=== PATIENT | female | born 1960 | race African-American/Black ===

== ENCOUNTER 2018-06-18 02:25 | Emergency (ER) | payer MEDICAID ==
[2018-06-18] MEDS ORDERED: MEPERIDINE HCL 50 MG/ML AMP ONE (02:56)
[2018-06-18] MEDS ORDERED: ONDANSETRON 4 MG (ODT) TAB ONE (02:57)
[2018-06-18] MEDS ORDERED: DIPHENHYDRAMINE 50 MG/ML VIAL ONE (04:34)
--- NOTE | 2018-06-18 04:49 | ER ---
Nurse's Notes [facility] Name: Erica Lopez Age: 57 yrs Sex: Female : 1960 Arrival Date: 06/18/2018 Time: : Bed 16 Private MD: Diagnosis: Acute headache Presentation: 06/18 02:28 Presenting complaint: EMS states: SHE WAS OUT AT THE BAR WITH FRIENDS AND HER HEAD bp STARTED HURTING REAL BAD ON THE LEFT SIDE. Transition of care: patient was not received from another setting of care. Onset of symptoms is unknown. Risk Assessment: Do you want to hurt yourself or someone else? Patient reports no desire to harm self or others. Initial Sepsis Screen: Does the patient meet any 2 criteria? No. Patient's initial sepsis screen is negative. Does the patient have a suspected source of infection? No. Patient's initial sepsis screen is negative. Care prior to arrival: Glucose check: 287. 02:28 Method Of Arrival: EMS: [facility] bp 02:28 Acuity: AARON 4 bp Triage Assessment: 02:30 Headache History: The patient has had previous headaches and this one is similar to bp previous episodes. General: Appears in no apparent distress. comfortable, Behavior is calm, cooperative, appropriate for age. Pain: Complains of pain in head Pain currently is 8 out of 10 on a pain scale. Pain began 2 hours ago. Also complains of photophobia. EENT: No deficits noted. Neuro: Level of Consciousness is awake, alert, obeys commands, Oriented to person, place, time, situation, Appropriate for age. Cardiovascular: No deficits noted. Respiratory: GI: No signs and/or symptoms were reported involving the gastrointestinal system. : No signs and/or symptoms were reported regarding the genitourinary system. Musculoskeletal: Circulation, motion, and sensation intact. Range of motion: intact in all extremities. Historical: - Allergies: 02:30 PENICILLINS; bp - Home Meds: 02:30 Atenolol Oral [Active]; lisinopril-hydrochlorothiazide 20-25 mg oral tab [Active]; bp - PMHx: 02:30 Hypertension; bp - Immunization history:: Adult Immunizations up to date. - Social history:: Smoking status: Patient/guardian denies using tobacco. - Ebola Screening: : Patient negative for fever greater than or equal to 101.5 degrees Fahrenheit, and additional compatible Ebola Virus Disease symptoms Patient denies exposure to infectious person Patient denies travel to an Ebola-affected area in the 21 days before illness onset No symptoms or risks identified at this time. Screenin:34 Abuse screen: Denies threats or abuse. Denies injuries from another. Nutritional bp screening: No deficits noted. Tuberculosis screening: No symptoms or risk factors identified. Fall Risk None identified. Assessment: 02:35 General: SEE TRIAGE NOTE. 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 bp 04:30 Reassessment: CT COMPLETED, AWAITING RESULTS. PT EXPRESSING RELIEF OF ACUTE S/S. bp 05:04 Reassessment: PT D/C HOME VIA W/C WITH FAMILY, DX WITH ACUTE HEADACHE. bp Vital Signs: 02:30 BP 149 / 100; Pulse 77; Resp 24; Temp 98.1; Pulse Ox 100% ; Weight 95.25 kg; Height 5 bp ft. 7 in. (170.18 cm); 03:30 BP 148 / 103; Pulse 76; Resp 16; Pulse Ox 97% ; bp 04:30 BP 129 / 77; Pulse 71; Resp 14; Pulse Ox 97% ; bp 02:30 Body Mass Index 32.89 (95.25 kg, 170.18 cm) bp ED Course: 02:27 Patient arrived in ED. bp 02:29 Triage completed. bp 02:33 Arm band placed on. bp 02:35 Patient has correct armband on for positive identification. Placed in gown. Bed in low bp position. Call light in reach. Side rails up X2. Adult w/ patient. 02:39 Rohan Ortiz MD is Attending Physician. pkl 02:50 Gera Nolan, BALDEV is Primary Nurse. bp 03:[address] via stretcher. kw1 03:10 CT completed. Patient tolerated procedure well. Patient moved back from CT. kw1 03:12 CT Head Brain wo Cont In Process Unspecified. EDMS 04:55 No provider procedures requiring assistance completed. Patient did not have IV access bp during this emergency room visit. Administered Medications: 03:00 Drug: Demerol 75 mg Route: IM; Site: left gluteus; bp 04:36 Follow up: Response: Pain is decreased bp 03:00 Drug: Zofran 4 mg Route: IM; Site: left gluteus; bp 04:36 Follow up: Response: No adverse reaction bp 04:36 Drug: Benadryl 25 mg Route: IM; Site: right gluteus; bp 04:55 Follow up: Response: Marked relief of symptoms bp Outcome: 04:48 Discharge ordered by . laurita 05:04 Discharged to home via wheelchair, with family. bp 05:04 Condition: stable 05:04 Discharge instructions given to patient, Instructed on discharge instructions, follow up and referral plans. medication usage, Demonstrated understanding of instructions, follow-up care, medications, Prescriptions given X 1. 05:05 Patient left the ED. bp Signatures: Dispatcher [employer] EDMS Rohan Ortiz MD MD pkl Peltier, Brian, RN RN Stephy Fox kw1
--- NOTE | 2018-06-18 04:49 | EDPHYS ---
Physician Documentation [facility] Name: Erica Lopez Age: 57 yrs Sex: Female : 1960 Arrival Date: 06/18/2018 Time: 02:27 Bed 16 Private MD: ED Physician Rohan Ortiz HPI: 06/18 02:46 This 57 yrs old Black Female presents to ER via EMS with complaints of Headache. pkl 02:46 The patient complains of pain to the forehead. The patient describes the headache as pkl constant. Onset: The symptoms/episode began/occurred just prior to arrival. Associated signs and symptoms: Pertinent positives: nausea. Historical: - Allergies: 02:30 PENICILLINS; bp - Home Meds: 02:30 Atenolol Oral [Active]; lisinopril-hydrochlorothiazide 20-25 mg oral tab [Active]; bp - PMHx: 02:30 Hypertension; bp - Immunization history:: Adult Immunizations up to date. - Social history:: Smoking status: Patient/guardian denies using tobacco. - Ebola Screening: : Patient negative for fever greater than or equal to 101.5 degrees Fahrenheit, and additional compatible Ebola Virus Disease symptoms Patient denies exposure to infectious person Patient denies travel to an Ebola-affected area in the 21 days before illness onset No symptoms or risks identified at this time. ROS: 02:46 Eyes: Negative for injury, pain, redness, and discharge, ENT: Negative for injury, pkl pain, and discharge, Neck: Negative for injury, pain, and swelling, Cardiovascular: Negative for chest pain, palpitations, and edema, Respiratory: Negative for shortness of breath, cough, wheezing, and pleuritic chest pain, Abdomen/GI: Negative for abdominal pain, nausea, vomiting, diarrhea, and constipation, Back: Negative for injury and pain, : Negative for injury, bleeding, discharge, and swelling, MS/Extremity: Negative for injury and deformity, Skin: Negative for injury, rash, and discoloration. 02:46 Neuro: Positive for headache. Exam: 02:46 Head/Face: Normocephalic, atraumatic. Eyes: Pupils equal round and reactive to light, pkl extra-ocular motions intact. Lids and lashes normal. Conjunctiva and sclera are non-icteric and not injected. Cornea within normal limits. Periorbital areas with no swelling, redness, or edema. ENT: Nares patent. No nasal discharge, no septal abnormalities noted. Tympanic membranes are normal and external auditory canals are clear. Oropharynx with no redness, swelling, or masses, exudates, or evidence of obstruction, uvula midline. Mucous membranes moist. Neck: Trachea midline, no thyromegaly or masses palpated, and no cervical lymphadenopathy. Supple, full range of motion without nuchal rigidity, or vertebral point tenderness. No Meningismus. Chest/axilla: Normal chest wall appearance and motion. Nontender with no deformity. No lesions are appreciated. Cardiovascular: Regular rate and rhythm with a normal S1 and S2. No gallops, murmurs, or rubs. Normal PMI, no JVD. No pulse deficits. Respiratory: Lungs have equal breath sounds bilaterally, clear to auscultation and percussion. No rales, rhonchi or wheezes noted. No increased work of breathing, no retractions or nasal flaring. Abdomen/GI: Soft, non-tender, with normal bowel sounds. No distension or tympany. No guarding or rebound. No evidence of tenderness throughout. Back: No spinal tenderness. No costovertebral tenderness. Full range of motion. Skin: Warm, dry with normal turgor. Normal color with no rashes, no lesions, and no evidence of cellulitis. MS/ Extremity: Pulses equal, no cyanosis. Neurovascular intact. Full, normal range of motion. Neuro: Awake and alert, GCS 15, oriented to person, place, time, and situation. Cranial nerves II-XII grossly intact. Motor strength 5/5 in all extremities. Sensory grossly intact. Cerebellar exam normal. Normal gait. Vital Signs: 02:30 BP 149 / 100; Pulse 77; Resp 24; Temp 98.1; Pulse Ox 100% ; Weight 95.25 kg; Height 5 bp ft. 7 in. (170.18 cm); 03:30 BP 148 / 103; Pulse 76; Resp 16; Pulse Ox 97% ; bp 04:30 BP 129 / 77; Pulse 71; Resp 14; Pulse Ox 97% ; bp 02:30 Body Mass Index 32.89 (95.25 kg, 170.18 cm) bp MDM: 02:39 Patient medically screened. pkl 04:47 Data reviewed: vital signs, nurses notes, radiologic studies, CT scan. pkl 06/18 02:46 Order name: CT Head Brain wo Cont pkl Administered Medications: 03:00 Drug: Demerol 75 mg Route: IM; Site: left gluteus; bp 04:36 Follow up: Response: Pain is decreased bp 03:00 Drug: Zofran 4 mg Route: IM; Site: left gluteus; bp 04:36 Follow up: Response: No adverse reaction bp 04:36 Drug: Benadryl 25 mg Route: IM; Site: right gluteus; bp 04:55 Follow up: Response: Marked relief of symptoms bp Disposition: 06/18/18 04:48 Discharged to Home. Impression: Acute headache. - Condition is Stable. - Prescriptions for Ultram 50 mg Oral Tablet - take 1 tablet by ORAL route every 8 hours As needed; 20 tablet. - Medication Reconciliation Form, Thank You Letter, Antibiotic Education, Prescription Opioid Use form. - Follow up: Private Physician; When: 2 - 3 days; Reason: Re-evaluation by your physician. - Problem is new. - Symptoms have improved. Signatures: Dispatcher [employer] EDMS Rohan Ortiz MD MD pkl Gera Nolan, RN RN bp Corrections: (The following items were deleted from the chart) 05:05 04:48 06/18/2018 04:48 Discharged to Home. Impression: Acute headache. Condition is bp Stable. Forms are Medication Reconciliation Form, Thank You Letter, Antibiotic Education, Prescription Opioid Use. Follow up: Private Physician; When: 2 - 3 days; Reason: Re-evaluation by your physician. Problem is new. Symptoms have improved. pkl
--- NOTE | 2018-06-18 08:14 | RAD REPORT ---
EXAM DESCRIPTION: CT - Head Brain Wo Cont - 06/18/2018 5:52 am CLINICAL HISTORY: HEADACHE COMPARISON: No comparisons TECHNIQUE: All CT scans are performed using dose optimization technique as appropriate and may inclu de automated exposure control or mA/KV adjustment according to patient size. FINDINGS: No intracranial hemorrhage, hydrocephalus or extra-axial fluid collection.No areas of brai n edema or evidence of midline shift. The paranasal sinuses and mastoids are clear. The calvarium is intact. IMPRESSION: No acute intracranial abnormality.
== END 2018-06-18 05:05 | disposition home or self-care (01) ==
LOC: ER 02:25
DX: R51 Headache (principal); I10 Essential (primary) hypertension; Z88.0 Allergy status to penicillin
CPT/HCPCS: 70450; 96372; 99284; J2175

== ENCOUNTER 2019-10-28 15:42 | Emergency (ER) | payer MEDICAID ==
--- OUTSIDE RECORDS SUMMARY | 2019-10-28 15:45 | XMS REPORT ---
:1960 [facility] [address] [place] [address] Dr. Walton. [address] [place] [address] Care Team Providers Name Role Phone Unavailable Unavailable Unavailable Payers Payer Name Policy Type Policy Number Effective Date Expiration Date Problems This patient has no known problems. Allergies, Adverse Reactions, Alerts Allergy Name Allergy Status Severity Reaction(s) Onset Inactive Treating Comments Type Date Date Clinician Penicillins DA Active U 2019-08 00:00:0 0 adhesive tape DA Active NV 2019-08 00:00:0 0 Penicillins DA Active U 2019-07 00:00:0 0 adhesive tape DA Active U 2019-07 00:00:0 0 Medications This patient has no known medications. Encounters Start End Encounter Admission Attending Care Care Encounter Date/Time Date/Time Type Type Clinicians Facility Department ID 2019-07-07 2019-07-07 [place] [address] 22:40:00 22:40:00 2019-04-17 2019-04-17 [place] [address] 23:10:00 23:10:00 Results Test Description Test Time Test Comments Text Results Atomic Results Result Comments GLYCOSYLATED HEMOGLOBIN (HA1C) 2019-09-01 14:42:00 Test Item Value Reference Range Comments GLYCOSYLATED HEMOGLOBIN (HA1C) 11.6 % 4.8-5.9 Any condition that shortens erythocyte (test code=GLYHGB) survival or decreasesmean erythrocyte age (e.g., recovery from acute blood loss,hemolytic anemai) will falsely lower HGBA1c resultsregardless of the method used. HGBA1c results frompatients with HbSS, HbCC and HbSc must be interpreted withcaution given the pathological processes, including anemia,increased red cell turnover, transfusion requirements, thatadversely impact HGBA1c as a marker of long-term glycemiccontrol. Alternative forms of testing such as fructosamineshould be considered for these patients.Any condition that shortens erythocyte survival or decreasesmean erythrocyte age (e.g., recovery from acute blood loss,hemolytic anemia) will falsely lower HGBA1c resultsregardless of the method used. HGBA1c results from patientswith HbSS, HbCC, and HbSc must be interpreted with cautiongiven the pathological processes, including anemia,increased red cell turnover, transfusion requirements, thatadversely impact HGBA1c as a marker of long-term glycemiccontrol. Alternative forms of testing such as fructosamineshould be considered for these patients.DONE AT: [facility] [address] [place] [address] GLYCOSYLATED HEMOGLOBIN (HA1C)2019-09-01 14:41:00 Test Item Value Reference Range Comments GLYCOSYLATED HEMOGLOBIN 11.6 % 4.8-5.9 Any condition that shortens (HA1C) (test code=GLYHGB) erythocyte survival or decreasesmean erythrocyte age (e.g., recovery from acute blood loss,hemolytic anemia) will falsely lower HGBA1c resultsregardless of the method used. HGBA1c results from patientswith HbSS, HbCC, and HbSc must be interpreted with cautiongiven the pathological processes, including anemia,increased red cell turnover, transfusion requirements, thatadversely impact HGBA1c as a marker of long-term glycemiccontrol. Alternative forms of testing such as fructosamineshould be considered for these patients. AB HIV 13:35:00 Test Item Value Reference Range Comments AB HIV 1 (test code=HIV1AB) NONREACTIVE NONREACTIVE DONE AT: [facility] [address] [place], [place] [address]Odvm by [employer] 4th Gen HIV Ag/Ab Combo Screen AB HIV 1 13:34:00 Test Item Value Reference Range Comments AB HIV 1 2 (test NONREACTIVE NONREACTIVE Done by Mto[facility] 4th code=MSX86BB) Gen HIV Ag/Ab Combo Screen CBC W/AUTO [id number] 13:09:00 Test Item Value Reference Range Comments WHITE BLOOD CELL (test code=WBC) 7.4 K/mm3 5.8-11.0 RED BLOOD CELL (test code=RBC) 5.73 M/mm3 4.2-5.4 HEMOGLOBIN (test code=HGB) 15.6 g/dL 12-16 HEMATOCRIT (test code=HCT) 47.7 % 37-47 MEAN CELL VOLUME (test code=MCV) 83 fL 80-98 MEAN CELL HGB (test code=MCH) 27.2 pg 27-34 MEAN CELL HGB CONCENTRATION (test code=MCHC) 32.7 g/dL 30.8-34.1 RED CELL DISTRIBUTION WIDTH (test code=RDW) 12.8 % 11-16 PLT (test code=PLT) 132 K/mm3 130-400 MEAN PLATELET VOLUME (test code=MPV) 14.4 fL 8.9-12.1 NEUTROPHIL % (test code=NT%) 52.1 % 45-70 LYMPHOCYTE % (test code=LY%) 34.3 % 20-40 MONOCYTE % (test code=MO%) 8.6 % 3-10 EOSINOPHIL % (test code=EO%) 4.0 % 1-5 BASOPHIL % (test code=BA%) 0.7 % 0.0-1.1 NEUTROPHIL # (test code=NT#) 3.88 K/mm3 2.00-7.50 LYMPHOCYTE # (test code=LY#) 2.55 K/mm3 1.50-4.00 MONOCYTE # (test code=MO#) 0.64 K/mm3 0.2-0.8 EOSINOPHIL # (test code=EO#) 0.30 K/mm3 0.04-0.4 BASOPHIL # (test code=BA#) 0.05 K/mm3 0.02-0.10 MANUAL DIFF REQUIRED (test code=MDIFF) NO MANUAL DIFF NUCLEATED RED BLOOD CELL (test code=NRBC) 0 % 0-0 URINALYSIS [id number] 12:57:00 Test Item Value Reference Range Comments UA COLOR (test code=COLU) YELLOW YELLOW UA APPEARANCE (test code=APPU) CLEAR CLEAR UA GLUCOSE DIPSTICK (test code=DGLUU) NEGATIVE NEGATIVE UA BILIRUBIN DIPSTICK (test code=BILU) NEGATIVE NEGATIVE UA KETONE DIPSTICK (test code=KETU) NEGATIVE mg/dL NEG UA SPECIFIC GRAVITY (test code=SGU) 1.015 1.003-1.035 UA BLOOD DIPSTICK (test code=MAURO) NEGATIVE NEGATIVE UA PH DIPSTICK (test code=GEORGE) 6.0 >6.5 UA PROTEIN DIPSTICK (test code=PROU) NEGATIVE mg/dL NEG UA UROBILINIOGEN DIPSTICK (test code=URO) 4.0 mg/dL NORM UA NITRITE DIPSTICK (test code=ELENA) NEGATIVE NEG UA LEUKOCYTE ESTERASE DIPSTICK (test NEGATIVE NEGATIVE code=LEUU) UA WBC (test code=WBCU) NONE SEEN /HPF 0-2 UA RBC (test code=RBCU) NONE SEEN /HPF 0-2 UA EPITHELIAL CELLS (test code=EPIU) 0-2 /HPF 0-2 UA BACTERIA (test code=BACU) RARE /HPF NONE PROTHROMBIN [id number] 12:38:00 Test Item Value Reference Range Comments PROTHROMBIN TIME PATIENT 12.7 secs 10.1-12.5 (test code=PTP) INTERNATIONAL NORMAL RATIO 1.12 <2.0 RECOMMENDED THERAPEUTIC RANGE (test code=INR) FOR ORAL ANTICOAGULANTTREATMENT: CONDITION INRProphylaxis of venous thrombosis in 2.0 - 3.0 high-risk medical or surgical patientsTreatment of venous thrombosis 2.0 - 3.0Prevention of embolism 2.0 - 3.0Prevention of recurrent embolism, or 3.0 - 4.5 patients with mechanical prosthetic intravascular valves IS PATIENT ON ANTICOAGULANTS ? [facility] been notified if Patient is on Heparin Drip? NOTHROMBOPLASTIN TIME [id number] 12:38:00 Test Item Value Reference Range Comments PTT ACTIVATED (test code=APTT) 32.9 secs 24.9-37.0 IS PATIENT ON ANTICOAGULANTS ? [facility] been notified if Patient is on Heparin Drip? NOCOMPREHENSIVE METABOLIC [id number] 12:21:00 Test Item Value Reference Range Comments SODIUM (test code=NA) 138 mmol/L 136-145 POTASSIUM (test code=K) 4.1 mmol/L 3.5-5.1 CHLORIDE (test code=CL) 101.0 mmol/L 98-107 CARBON DIOXIDE (test code=CO2) 29.4 mmol/L 21-32 GLUCOSE (test code=GLU) 237 mg/dL 70-110 BLOOD UREA NITROGEN (test 13 mg/dL 7-18 code=BUN) GLOMERULAR FILTRATION RATE 91.6 >60 Unit of measure: (test code=GFR) mL/min/1.73 [id number] Range:Healthy Adults >90 mL/min/1.73 m2 For Chronic Kidney Disease: Stage II Mild Decrease in GFR 60-90 Stage III Moderate Decrease in GFR 30-59 Stage IV Severe Decrease in GFR 15-29 Stage V Kidney Failure <15 CREATININE (test code=CREAT) 0.78 mg/dL 0.55-1.30 TOTAL PROTEIN (test code=PROT) 7.1 g/dL 6.4-8.2 ALBUMIN (test code=ALB) 3.2 g/dL 3.4-5.0 GLOBULIN (test code=GLOB) 3.9 g/dL 2.2-4.2 ALBUMIN/GLOBULIN RATIO (test 0.8 0.7-2.0 code=A/G) CALCIUM (test code=CA) 9.4 mg/dL 8.2-10.1 BILIRUBIN TOTAL (test 0.86 mg/dL 0.2-1.00 code=BILT) SGOT/AST (test code=AST) 69.0 U/L 15-37 SGPT/ALT (test code=ALT) 70.0 U/L 12-78 Please note new normal range. ALKALINE PHOSPHATASE TOTAL 151 U/L 46-116 (test code=ALKP) [id number] 01:13:00 Test Item Value Reference Range Comments GLUBED (test code=GLUBED) 222 MG/DL 70-105 COMPREHENSIVE METABOLIC [id number] 23:12:00 Test Item Value Reference Range Comments SODIUM (test code=NA) 135 mmol/L 135-145 POTASSIUM (test code=K) 3.9 mmol/L 3.6-5.0 CHLORIDE (test code=CL) 102 mmol/L 101-111 CARBON DIOXIDE (test 27 mmol/L 21-31 code=CO2) GLUCOSE (test code=GLU) 459 mg/dl 70-100 BLOOD UREA NITROGEN (test 14 mg/dl 6-20 code=BUN) GLOMERULAR FILTRATION >=60 max estimate >60 The estimated glomerular RATE (test code=GFR) filtration rate is computed usingpatient race, age (>18), sex, and serum creatinine. If anyof the needed data elements are missing the Laboratory cannot compute an estimation of the glomerular filtration rate. CREATININE (test 0.96 mg/dL 0.44-1.03 code=CREAT) TOTAL PROTEIN (test 7.2 g/dL 6.7-8.2 code=PROT) ALBUMIN (test code=ALB) 3.1 g/dL 3.2-5.5 CALCIUM (test code=CA) 8.9 mg/dL 8.5-10.5 BILIRUBIN TOTAL (test 0.90 mg/dL 0.2-1.3 code=BILT) SGOT/AST (test code=AST) 60 U/L 10-42 SGPT/ALT (test code=ALT) 62 U/L 10-60 ALKALINE PHOSPHATASE 118 U/L 42-121 (test code=ALKP) BETA [id number] 23:12:00 Test Item Value Reference Range Comments BETA HYDROBUTYRATE (test code=BETHYD) 0.05 mmol/L 0.02-0.27 CBC W/AUTO [id number] 23:08:00 Test Item Value Reference Range Comments WHITE BLOOD CELL (test code=WBC) 7.3 x10 3/uL 3.2-11.5 RED BLOOD CELL (test code=RBC) 5.59 x10(6)/m 3.70-5.10 HEMOGLOBIN (test code=HGB) 15.7 g/dL 12.0-15.0 HEMATOCRIT (test code=HCT) 47.6 % 35.7-44.8 MEAN CELL VOLUME (test code=MCV) 85 fL 80-100 MEAN CELL HGB (test code=MCH) 28.1 pg 26.2-33.8 MEAN CELL HGB CONCENTRATION (test code=MCHC) 33.0 g/dL 30.0-34.0 RED CELL DISTRIBUTION WIDTH (test code=RDW) 13.2 % 11.3-14.5 PLATELET COUNT (test code=PLT) 100 x10 3/uL 130-408 MEAN PLATELET VOLUME (test code=MPV) 13.4 fl 6.4-10.5 NEUTROPHIL % (test code=NT%) 56.7 % 40.0-70.0 LYMPHOCYTE % (test code=LY%) 32.1 % 20-40 MONOCYTE % (test code=MO%) 7.5 % 1-10 EOSINOPHIL % (test code=EO%) 3.1 % 1.0-5.0 BASOPHIL % (test code=BA%) 0.6 % 0.0-1.0 NEUTROPHIL # (test code=NT#) 4.1 x10 3/uL 1.6-7.2 LYMPHOCYTE # (test code=LY#) 2.30 x10 3/uL 1.1-2.7 MONOCYTE # (test code=MO#) 0.5 x10 3/uL 0.3-0.8 EOSINOPHIL # (test code=EO#) 0.2 x10 3/uL 0.0-0.5 BASOPHIL # (test code=BA#) 0.0 x10 3/uL 0.0-0.1 DIFFERENTIAL [id number] 23:08:00 Test Item Value Reference Range Comments RBC MORPHOLOGY REQUIRED (test NORMAL code=RBCM) PLATELET MORPHOLOGY (test LARGE PLATELETS SEEN NORMAL code=PLTMORPH) CBC W/AUTO [id number] 23:06:00 Test Item Value Reference Range Comments WHITE BLOOD CELL (test code=WBC) 7.3 x10 3/uL 3.2-11.5 RED BLOOD CELL (test code=RBC) 5.59 x10(6)/m 3.70-5.10 HEMOGLOBIN (test code=HGB) 15.7 g/dL 12.0-15.0 HEMATOCRIT (test code=HCT) 47.6 % 35.7-44.8 MEAN CELL VOLUME (test code=MCV) 85 fL 80-100 MEAN CELL HGB (test code=MCH) 28.1 pg 26.2-33.8 MEAN CELL HGB CONCENTRATION (test code=MCHC) 33.0 g/dL 30.0-34.0 RED CELL DISTRIBUTION WIDTH (test code=RDW) 13.2 % 11.3-14.5 PLATELET COUNT (test code=PLT) 100 x10 3/uL 130-408 MEAN PLATELET VOLUME (test code=MPV) 13.4 fl 6.4-10.5 NEUTROPHIL % (test code=NT%) 56.7 % 40.0-70.0 LYMPHOCYTE % (test code=LY%) 32.1 % 20-40 MONOCYTE % (test code=MO%) 7.5 % 1-10 EOSINOPHIL % (test code=EO%) 3.1 % 1.0-5.0 BASOPHIL % (test code=BA%) 0.6 % 0.0-1.0 NEUTROPHIL # (test code=NT#) 4.1 x10 3/uL 1.6-7.2 LYMPHOCYTE # (test code=LY#) 2.30 x10 3/uL 1.1-2.7 MONOCYTE # (test code=MO#) 0.5 x10 3/uL 0.3-0.8 EOSINOPHIL # (test code=EO#) 0.2 x10 3/uL 0.0-0.5 BASOPHIL # (test code=BA#) 0.0 x10 3/uL 0.0-0.1 DIFFERENTIAL [id number] 23:06:00 Test Item Value Reference Range Comments PLATELET MORPHOLOGY (test code=PLTMORPH) NORMAL CBC W/AUTO [id number] 23:06:00 Test Item Value Reference Range Comments WHITE BLOOD CELL (test code=WBC) 7.3 x10 3/uL 3.2-11.5 RED BLOOD CELL (test code=RBC) 5.59 x10(6)/m 3.70-5.10 HEMOGLOBIN (test code=HGB) 15.7 g/dL 12.0-15.0 HEMATOCRIT (test code=HCT) 47.6 % 35.7-44.8 MEAN CELL VOLUME (test code=MCV) 85 fL 80-100 MEAN CELL HGB (test code=MCH) 28.1 pg 26.2-33.8 MEAN CELL HGB CONCENTRATION (test code=MCHC) 33.0 g/dL 30.0-34.0 RED CELL DISTRIBUTION WIDTH (test code=RDW) 13.2 % 11.3-14.5 PLATELET COUNT (test code=PLT) 100 x10 3/uL 130-408 MEAN PLATELET VOLUME (test code=MPV) 13.4 fl 6.4-10.5 NEUTROPHIL % (test code=NT%) 56.7 % 40.0-70.0 LYMPHOCYTE % (test code=LY%) 32.1 % 20-40 MONOCYTE % (test code=MO%) 7.5 % 1-10 EOSINOPHIL % (test code=EO%) 3.1 % 1.0-5.0 BASOPHIL % (test code=BA%) 0.6 % 0.0-1.0 NEUTROPHIL # (test code=NT#) 4.1 x10 3/uL 1.6-7.2 LYMPHOCYTE # (test code=LY#) 2.30 x10 3/uL 1.1-2.7 MONOCYTE # (test code=MO#) 0.5 x10 3/uL 0.3-0.8 EOSINOPHIL # (test code=EO#) 0.2 x10 3/uL 0.0-0.5 BASOPHIL # (test code=BA#) 0.0 x10 3/uL 0.0-0.1 DIFFERENTIAL [id number] 23:06:00 Test Item Value Reference Range Comments PLATELET MORPHOLOGY (test code=PLTMORPH) NORMAL URINALYSIS [id number] 22:55:00 Test Item Value Reference Range Comments UA COLOR (test code=COLU) YELLOW YELLOW UA APPEARANCE (test code=APPU) Clear CLEAR UA GLUCOSE DIPSTICK (test code=DGLUU) 3+ NEGATIVE UA BILIRUBIN DIPSTICK (test code=BILU) NEGATIVE NEGATIVE UA KETONE DIPSTICK (test code=KETU) NEGATIVE NEGATIVE UA SPECIFIC GRAVITY (test code=SGU) 1.022 1.001-1.030 UA BLOOD DIPSTICK (test code=MAURO) NEGATIVE NEGATIVE UA PH DIPSTICK (test code=GEORGE) 5.0 5.0-9.0 UA PROTEIN DIPSTICK (test code=PROU) NEGATIVE NEGATIVE UA UROBILINOGEN DIPSTICK (test code=URO) 2.0 <=1.0 UA NITRITE DIPSTICK (test code=ELENA) NEGATIVE NEGATIVE UA ASCORBIC ACID DIPSTICK (test code=AAU) NEGATIVE UA LEUKOCYTE ESTERASE DIPSTICK (test code=LEUU) NEGATIVE NEGATIVE UA WBC (test code=WBCU) 0-5 /HPF 0-5 UA RBC (test code=RBCU) 0-5 /HPF 0-5 UA EPITHELIAL CELLS (test code=EPIU) FEW /LPF NONE-FEW UA BACTERIA (test code=BACU) None /HPF NONE SEEN UA MUCUS (test code=MUCU) 1+ /LPF NONE SEEN
[2019-10-28] MEDS ORDERED: LIDOCAINE 2% MPF 5 ML VIAL ONE (16:43)
[2019-10-28] MEDS ORDERED: BUPIVACAINE 0.5% PF 10 ML VIAL ONE (16:44)
[2019-10-28] MEDS ORDERED: HYDROCODONE/APAP 7.5/325 MG TAB ONE (16:44)
--- NOTE | 2019-10-28 17:15 | RAD REPORT ---
EXAM DESCRIPTION: RAD - Hand Right 3 View - 10/28/2019 5:04 pm CLINICAL HISTORY: Right hand pain status post injury FINDINGS: No fracture or dislocation is seen.
--- NOTE | 2019-10-28 17:23 | EDPHYS ---
Physician Documentation [facility] Name: Erica Lopez Age: 59 yrs Sex: Female : 1960 Arrival Date: 10/28/2019 Time: 15:44 Bed 13 Private MD: ED Physician Juan Jose Wilkes HPI: 10/28 17:04 This 59 yrs old Black Female presents to ER via Ambulatory with complaints of Thumb la1 Injury. 17:04 The patient or guardian reports pain and abrasion to distal tip of right thumb. The la1 complaints affect the dorsal aspect of distal phalanx of right thumb and right thumbnail. Context: The problem was sustained at a store. Onset: The symptoms/episode began/occurred just prior to arrival. Modifying factors: The symptoms are alleviated by elevation, the symptoms are aggravated by nothing. Associated signs and symptoms: Pertinent negatives: cyanosis distally, numbness distally, tingling distally, vomiting. Severity of symptoms: At their worst the symptoms were mild, in the emergency department the symptoms have improved. The patient has not experienced similar symptoms in the past. Pt was at [facility] and pulled a cord out of an outlet which whipped back and injured the distal tip of the right thumb. Historical: - Allergies: 16:23 PENICILLINS; ph - PMHx: 16:23 Hypertension; Diabetes - IDDM; ph - Immunization history:: Adult Immunizations up to date. - Social history:: Smoking status: Patient/guardian denies using tobacco. - Ebola Screening: : Patient negative for fever greater than or equal to 101.5 degrees Fahrenheit, and additional compatible Ebola Virus Disease symptoms Patient denies exposure to infectious person Patient denies travel to an Ebola-affected area in the 21 days before illness onset No symptoms or risks identified at this time. ROS: 17:06 Constitutional: Negative for fever, chills, and weight loss, Eyes: Negative for injury, la1 pain, redness, and discharge, ENT: Negative for injury, pain, and discharge, Neck: Negative for injury, pain, and swelling, Cardiovascular: Negative for chest pain, palpitations, and edema, Respiratory: Negative for shortness of breath, cough, wheezing, and pleuritic chest pain, Abdomen/GI: Negative for abdominal pain, nausea, vomiting, diarrhea, and constipation, Back: Negative for injury and pain. 17:06 MS/extremity: Positive for abrasion, pain, of the dorsal aspect of distal phalanx of right thumb. Exam: 17:07 Constitutional: This is a well developed, well nourished patient who is awake, alert, la1 and in no acute distress. Head/Face: Normocephalic, atraumatic. Eyes: Pupils equal round and reactive to light, extra-ocular motions intact. Periorbital areas with no swelling, redness, or edema. Chest/axilla: Normal chest wall appearance and motion. Nontender with no deformity. No lesions are appreciated. Skin: Warm, dry with normal turgor. Normal color with no rashes, no lesions, and no evidence of cellulitis. MS/ Extremity: Pulses equal, no cyanosis. Neurovascular intact. Full, normal range of motion. 17:07 Musculoskeletal/extremity: Extremities: noted in the dorsal aspect of distal phalanx of right thumb: abrasion, tenderness, Circulation is intact in all extremities. Sensation intact. 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 . Vital Signs: 16:24 Pulse 56; Resp 18; Temp 98.0; Pulse Ox 100% on R/A; Weight 95.25 kg; Height 5 ft. 7 in. ph (170.18 cm); Pain 10/10; 17:30 BP 131 / 89; Pulse 61; Resp 16 S; Pulse Ox 100% on R/A; ca1 16:24 Body Mass Index 32.89 (95.25 kg, 170.18 cm) ph Procedures: 17:03 Nerve block: (digital) of dorsal aspect of distal phalanx of right thumb and palmar la1 aspect of distal phalanx of left thumb Medication: Lidocaine 2% without epinephrine, Marcaine 0.5%, Amount: 3 mls were injected, Effect: the patient has resolution of the pain, Set up for procedure. Performed by Lowell FRAIRE Patient tolerated well. MDM: 16:25 Patient medically screened. la1 17:19 Data reviewed: vital signs, nurses notes, radiologic studies, and as a result, I will la1 discharge patient. Data interpreted: Pulse oximetry: on room air is 100 %. Interpretation: normal. Counseling: I had a detailed discussion with the patient and/or guardian regarding: the historical points, exam findings, and any diagnostic results supporting the discharge/admit diagnosis, radiology results, the need for outpatient follow up, a family practitioner. Medication response: ldiocaine. Response to treatment: the patient's symptoms have resolved after treatment. Special discussion: I discussed in detail with the patient the higher chance of wound infection based on his presenting history. ED course: Pt has full ROM in affected thumb, pain is resolved after digital block. Given return precautions and wound care instructions. . 10/28 16:34 Order name: Hand Right 3 View XRAY; Complete Time: 17:16 la1 10/28 17:26 Order name: Wound Care; Complete Time: 17:26 la1 10/28 17:26 Order name: Dressing - Wound; Complete Time: 17:26 la1 Administered Medications: 16:45 Drug: Prescott (7.5 mg-325 mg) 1 tabs Route: PO; ca1 17:23 Follow up: Response: No adverse reaction; Pain is decreased ca1 17:28 Follow up: Response: No adverse reaction; RASS: Alert and Calm (0) ca1 17:00 Drug: Lidocaine (2 %) 5 mg {Note: By Lowell HEALTHCARE TECHNICIAN.} Route: Infiltration; ca1 17:00 Drug: Marcaine (0.5 %) 5 ml {Note: by Lowell HEALTHCARE TECHNICIAN.} Volume: 10 ml; Route: Infiltration; ca1 Disposition: 10/29 07:25 Co-signature as Attending Physician, Juan Jose Wileks MD I agree with the assessment and kdr plan of care. Disposition: 10/28/19 17:22 Discharged to Home. Impression: Unspecified superficial injury of other fingers. - Condition is Stable. - Discharge Instructions: Nail Avulsion, Finger Sprain, Adult. - Medication Reconciliation Form, Thank You Letter form. - Follow up: Private Physician; When: 2 - 3 days; Reason: Wound Recheck, Recheck today's complaints, Re-evaluation by your physician. - Problem is new. - Symptoms have improved. Signatures: Dispatcher [employer] EDDE Juan Jose Wilkes MD MD kdr Attema, Lee, GUNJAN-C CRUISE DIRECTOR-Cla1 Soco Bo RN RN ph Lisa Block RN RN ca1 Corrections: (The following items were deleted from the chart) 10/28 17:07 17:03 Nerve block: (digital) of dorsal aspect of proximal phalanx of left thumb and la1 palmar aspect of distal phalanx of left thumb la1 17:37 17:22 10/28/2019 17:22 Discharged to Home. Impression: Unspecified superficial injury ca1 of other fingers. Condition is Stable. Forms are Medication Reconciliation Form, Thank You Letter, Antibiotic Education, Prescription Opioid Use. Follow up: Private Physician; When: 2 - 3 days; Reason: Wound Recheck, Recheck today's complaints, Re-evaluation by your physician. Problem is new. Symptoms have improved. la1
--- NOTE | 2019-10-28 17:23 | ER ---
Nurse's Notes [facility] Name: Erica Lopez Age: 59 yrs Sex: Female : 1960 Arrival Date: 10/28/2019 Time: 15:44 Bed 13 Private MD: Diagnosis: Unspecified superficial injury of other fingers Presentation: 10/28 16:23 Presenting complaint: Patient states: Broke artificial nail to L thumb, bleeding noted ph states, " I was worried because I'm a diabetic.". Transition of care: patient was not received from another setting of care. Onset of symptoms was October 28, 2019. Risk Assessment: Do you want to hurt yourself or someone else? Patient reports no desire to harm self or others. Initial Sepsis Screen: Does the patient meet any 2 criteria? No. Patient's initial sepsis screen is negative. Does the patient have a suspected source of infection? No. Patient's initial sepsis screen is negative. Care prior to arrival: None. 16:23 Method Of Arrival: Ambulatory ph 16:23 Acuity: AARON 4 ph Triage Assessment: 17:37 General: . Injury Description:. ca1 Historical: - Allergies: 16:23 PENICILLINS; ph - PMHx: 16:23 Hypertension; Diabetes - IDDM; ph - Immunization history:: Adult Immunizations up to date. - Social history:: Smoking status: Patient/guardian denies using tobacco. - Ebola Screening: : Patient negative for fever greater than or equal to 101.5 degrees Fahrenheit, and additional compatible Ebola Virus Disease symptoms Patient denies exposure to infectious person Patient denies travel to an Ebola-affected area in the 21 days before illness onset No symptoms or risks identified at this time. Screenin:35 Abuse screen: Denies threats or abuse. Denies injuries from another. Nutritional ca1 screening: No deficits noted. Tuberculosis screening: No symptoms or risk factors identified. Fall Risk None identified. Assessment: 16:35 General: Appears in no apparent distress. comfortable, Behavior is calm, cooperative, ca1 appropriate for age. Pain: Complains of pain in right thumbnail Pain currently is 8 out of 10 on a pain scale. Neuro: Level of Consciousness is awake, alert, obeys commands, Oriented to person, place, time, situation, Appropriate for age. Derm: Skin is healthy with good turgor, Skin is pink, warm \\T\\ dry. Wound noted right thumbnail Wound is nail broke, bleeding. Musculoskeletal: Circulation, motion, and sensation intact. Capillary refill < 3 seconds, Range of motion: intact in all extremities. 17:30 Reassessment: Patient appears in no apparent distress at this time. Patient and/or ca1 family updated on plan of care and expected duration. Pain level reassessed. Vital Signs: 16:24 Pulse 56; Resp 18; Temp 98.0; Pulse Ox 100% on R/A; Weight 95.25 kg; Height 5 ft. 7 in. ph (170.18 cm); Pain 10/10; 17:30 BP 131 / 89; Pulse 61; Resp 16 S; Pulse Ox 100% on R/A; ca1 16:24 Body Mass Index 32.89 (95.25 kg, 170.18 cm) ph ED Course: 15:44 Patient arrived in ED. mr 16:24 Triage completed. ph 16:24 Arm band placed on Patient placed in an exam room. ph 16:25 Lowell Roblero FNP-C is [facility]. la1 16:25 Juan Jose Wilkes MD is Attending Physician. la1 16:35 Lisa Block RN is Primary Nurse. ca1 16:35 Patient has correct armband on for positive identification. Bed in low position. Call ca1 light in reach. Side rails up X 1. Pulse ox on. NIBP on. 17:00 Assist provider with nerve block (digital) of palmar aspect of distal phalanx of right ca1 thumb Set up for procedure. Performed by Lowell FRAIRE Patient tolerated well. 17:00 Patient did not have IV access during this emergency room visit. ca1 17:04 Hand Right 3 View XRAY In Process Unspecified. EDMS 17:15 Wound care: to nail broke on R thumb, bleeding located on right thumbnail was cleaned ca1 with Hibiclens, dressed with Neosporin, 4X4s, Vaseline gauze, Patient tolerated well. Administered Medications: 16:45 Drug: [place] (7.5 mg-325 mg) 1 tabs Route: PO; ca1 17:23 Follow up: Response: No adverse reaction; Pain is decreased ca1 17:28 Follow up: Response: No adverse reaction; RASS: Alert and Calm (0) ca1 17:00 Drug: Lidocaine (2 %) 5 mg {Note: By FEDERICO Etienne.} Route: Infiltration; ca1 17:00 Drug: Marcaine (0.5 %) 5 ml {Note: by FEDERICO Etienne.} Volume: 10 ml; Route: Infiltration; ca1 Outcome: 17:22 Discharge ordered by MD. avila 17:36 Discharged to home via wheelchair, with family. ca1 17:36 Condition: stable 17:36 Discharge instructions given to patient, Instructed on discharge instructions, follow up and referral plans. wound care, Demonstrated understanding of instructions, follow-up care, wound care. 17:37 Patient left the ED. ca1 Signatures: Dispatcher [employer] NOEME Evangelina Mejia, Lowell, HYDROTREATER OPERATOR-C HYDROTREATER OPERATOR-Cla1 [place], RN RN Lisa Block RN RN ca1
[2019-10-28 19:35] VITALS: BP 131/89; O2SAT 100
[2019-10-28 19:37] VITALS: TEMP 98
== END 2019-10-28 17:37 | disposition home or self-care (01) ==
LOC: ER 15:42
DX: S60.932A Unspecified superficial injury of left thumb, initial encounter (principal); W22.8XXA Striking against or struck by other objects, initial encounter; Y93.89 Activity, other specified; Y92.512 Supermarket, store or market as the place of occurrence of the external cause; Z88.0 Allergy status to penicillin
CPT/HCPCS: 64450; 99284

== ENCOUNTER 2019-12-23 14:29 | Emergency (ER) | payer OTHER, MEDICAID ==
[2019-12-23] MEDS ORDERED: HYDROCODONE/APAP 10/325 TAB ONE (15:18)
[2019-12-23 15:48] LABS: Urine Blood NEGATIVE (NEG); Urine Glucose NEGATIVE (NEG); Urine Protein NEGATIVE (NEG); Urine Specific Gravity 1.025 (1.005-1.030)
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
[2019-12-23 17:19] VITALS: TEMP 97.6
[2019-12-23 17:21] VITALS: BP 139/67; O2SAT 99
== END 2019-12-23 16:20 | disposition home or self-care (01) ==
LOC: ER 14:29
DX: M17.11 Unilateral primary osteoarthritis, right knee (principal); T79.A0XA Compartment syndrome, unspecified, initial encounter; I10 Essential (primary) hypertension
CPT/HCPCS: 81003; 81025; 87086; 87088; 99284

== ENCOUNTER 2020-05-11 14:37 | Emergency (ER) | payer OTHER, MEDICAID ==
--- OUTSIDE RECORDS SUMMARY | 2020-05-11 14:39 | XMS REPORT | Continuity of Care Document ---
:1960 Author Organization [facility] t Address [address] [place] [address] Care Team Providers Name Role Phone Unavailable Unavailable Unavailable Payers Payer Name Policy Type Policy Number Effective Date Expiration Date S ource Problems This patient has no known problems. Allergies, Adverse Reactions, Alerts Allergy Allergy Status Severity Reaction(s) Onset Inactive Treating Comm ents Source Name Type Date Date Clinician Pen[place] DA Active SV [facility] ins 2-11 Clear 00:00: Gracia 00 [place] Penicill DA Active U 2018-11 [facility] ins 0-11 Clear 00:00: Gracia 00 [place] adhesive DA Active CA 2018-11 [facility] tape 0-11 Clear 00:00: Gracia 00 [place] Penicill DA Active U [facility] ins 08-17 [place] 00:00: Health 00 are [facility] adhesive DA Active U [facility] tape 08-17 [place] 00:00: Health 00 are [facility] Medications This patient has no known medications. Procedures This patient has no known procedures. Encounters Start End Encounter Admission Attending Care Care Encounter Source Date/Time Date/Time Type Type Clinicians Facility Department ID 2020-03-20 2020-03-20 Emergency E MHNE MHNE [id number] MHNE 14:00:00 14:00:00 2019-07-07 2019-07-07 Emergency E [facility]NE [facility]NE 7503 MHNE 22:40:00 22:40:00 2019-04-17 2019-04-17 Emergency E [facility]NE NE 7502 MHNE 23:10:00 23:10:00 Results Test Description Test Time Test Comments Results Result Comments Source GLUBED 2020-01-17 11:41:00 Test Item Value Reference Range Interpretation Comme nts GLUBED (test code = GLUBED) 87 mg/dL 60-125 N - XR KNEE 1 OR 2 V [id number] 10:25:00 Patient Name: DENVER VILLAVICENCIO Unit No: [id number] EXAMS: CPT CODE: [id number] XR KNEE 1 OR 2 [place] [address] RIGHT KNEE 2 VIEWS PORTABLE COMMENT: The patient is status post joint replacement which is articulating normally. at 1025 Reported and signed by: Jonah Reis MD CC: Lady Saldivar MD Technologist: DILLAN MAURICE (RT.R) Transcribed D/ (1025) [id number] [facility] NAME: DENVER VILLAVICENCIO [address] [place] [address] PHYS: Lady Olmos : 1960 AGE: 59 SEX: F [place] [address] LOC: Y.518 A PHONE #: [phone] EXAM DATE: 01/15/2020 STATUS: ADM IN FAX #: [phone] #: D/C DT PAGE 1 Signed Report Patient Name: DENVER VILLAVICENCIO Unit No: [id number] EXAMS: CPT CODE: [id number] XR KNEE 1 OR 2 V RT 48010 <Continued> Orig Print D/T: S: 01/17/2020 (1025) [facility] NAME: DENVER VILLAVICENCIO [address] [place] [address] PHYS: Lady Olmos : 1960 AGE: 59 SEX: F [place] [address] LOC: Y.518 A PHONE #: [phone] EXAM DATE: 01/15/2020 STATUS: ADM IN FAX #: [phone] RAD #: D/C DT PAGE 2 Signed [id number] 05:18:00 Test Item Value Reference Range Interpretation Comments GLUBED (test code = GLUBED) 238 mg/dL 60-125 H [id number] 20:44:00 Test Item Value Reference Range Interpretation Comments GLUBED (test code = GLUBED) 179 mg/dL 60-125 H [id number] 16:33:00 Test Item Value Reference Range Interpretation Comments GLUBED (test code = GLUBED) 211 mg/dL 60-125 H [id number] 12:17:00 Test Item Value Reference Range Interpretation Comments GLUBED (test code = GLUBED) 95 mg/dL 60-125 N [id number] 10:01:00 Test Item Value Reference Range Interpretation Comments GLUBED (test code = GLUBED) 118 mg/dL 60-125 N BASIC METABOLIC [id number] 06:21:00 Test Item Value Reference Range Interpretation Comments SODIUM (test code = 140 mmol/L 136-145 N NA) POTASSIUM (test code = 4.7 mmol/L 3.5-5.1 N K) CHLORIDE (test code = 104.0 mmol/L 98-107 N CL) CARBON DIOXIDE (test 26.2 mmol/L 21-32 N code = CO2) GLUCOSE (test code = 203 mg/dL 70-110 H GLU) BLOOD UREA NITROGEN 17 mg/dL 7-18 N (test code = BUN) GLOMERULAR FILTRATION 75.7 >60 Unit o f measure: RATE (test code = GFR) mL/mi n/1.73 [id number] Range:Healthy Adults >90 mL/min/1.73 m2 For Chronic Kidney Disease: St age II Mild Decrease in GFR 60-90 St age III Moderate Decrease in GFR 30-59 Stage IV Severe Decre ase in GFR 15- 29 Stage V Kidney Failure <15 CREATININE (test code 0.92 mg/dL 0.55-1.30 N = CREAT) CALCIUM (test code = 8.2 mg/dL 8.2-10.1 N CA) HGB [id number] 05:53:00 Test Item Value Reference Range Interpretation Comments HEMOGLOBIN (test code = HGB) 13.1 g/dL 12-16 N HEMATOCRIT (test code = HCT) 39.8 % 37-47 N [id number] 05:01:00 Test Item Value Reference Range Interpretation Comments GLUBED (test code = GLUBED) 186 mg/dL 60-125 H [id number] 20:15:00 Test Item Value Reference Range Interpretation Comments GLUBED (test code = GLUBED) 230 mg/dL 60-125 H [id number] 17:01:00 Test Item Value Reference Range Interpretation Comments GLUBED (test code = GLUBED) 214 mg/dL 60-125 H [id number] 07:59:00 Test Item Value Reference Range Interpretation Comments GLUBED (test code = GLUBED) 75 mg/dL 60-125 N GLYCOSYLATED HEMOGLOBIN (HA1C)2020-01-02 20:58:00 Test Item Value Reference Range Interpretation Comments GLYCOSYLATED 7.4 % 4.8-5.9 H Any condition t hat shortens HEMOGLOBIN (HA1C) erythocyte survival or (test code = GLYHGB) decreas esmean erythrocyte age (e.g., adelso very from acute blood los s,hemolytic anemai) will fa lsely lower HGBA1c resultsr egardless of the method used . HGBA1c results frompat ients with HbSS, HbCC and HbSc must be interpreted wit hcaution given the patho logical processes, incl uding anemia,increase d red cell turnover, trans fusion requirements, t hatadversely impact HGBA1c a s a marker of long-term glycemiccontrol . Alternative for ms of testing such as fructosaminesho uld be considered for these patients.Any co ndition that shortens erytho cyte survival or dec reasesmean erythrocyte age (e.g., recovery from a cute blood loss,hemolytic anemia) will falsely lower H GBA1c resultsregardle ss of the method used. H GBA1c results from jannet woodard HbSS, HbCC, and HbSc must be interpreted with cautiongiven th e pathological pr ocesses, including anemi a,increased red cell turnov er, transfusion req uirements, thatadversely i mpact HGBA1c as a marker of long-term glycemiccontrol . Alternative for ms of testing such as fructosaminesho uld be considered for these patients.DONE A T: [facility] [address], [place] [address] GLYCOSYLATED HEMOGLOBIN (HA1C)2020-01-02 20:57:00 Test Item Value Reference Range Interpretation Comments GLYCOSYLATED 7.4 % 4.8-5.9 H Any condition t hat shortens HEMOGLOBIN (HA1C) erythocyte survival or (test code = GLYHGB) decreas esmean erythrocyte age (e.g., adelso very from acute blood los s,hemolytic anemia) will fa lsely lower HGBA1c resultsr egardless of the method used . HGBA1c results from jannet woodard HbSS, HbCC, and HbSc must be interpreted with cautiongiven th e pathological pr ocesses, including anemi a,increased red cell turnov er, transfusion req uirements, thatadversely i mpact HGBA1c as a marker of long-term glycemiccontrol . Alternative for ms of testing such as fructosaminesho uld be considered for these patients. COMPREHENSIVE METABOLIC [id number] 17:53:00 Test Item Value Reference Range Interpretation Comments SODIUM (test code = 143 mmol/L 136-145 N NA) POTASSIUM (test code = 4.1 mmol/L 3.5-5.1 N K) CHLORIDE (test code = 105.0 mmol/L 98-107 N CL) CARBON DIOXIDE (test 29.7 mmol/L 21-32 N code = CO2) GLUCOSE (test code = 109 mg/dL 70-110 N GLU) BLOOD UREA NITROGEN 11 mg/dL 7-18 N (test code = BUN) GLOMERULAR FILTRATION 91.6 >60 Unit o f measure: RATE (test code = GFR) mL/mi n/1.73 [id number] Range:Healthy Adults >90 mL/min/1.73 m2 For Chronic Kidney Disease: St age II Mild Decrease in GFR 60-90 St age III Moderate Decrease in GFR 30-59 Stage IV Severe Decre ase in GFR 15- 29 Stage V Kidney Failure <15 CREATININE (test code 0.78 mg/dL 0.55-1.30 N = CREAT) TOTAL PROTEIN (test 7.1 g/dL 6.4-8.2 N code = PROT) ALBUMIN (test code = 3.1 g/dL 3.4-5.0 L ALB) GLOBULIN (test code = 4.0 g/dL 2.2-4.2 N GLOB) ALBUMIN/GLOBULIN RATIO 0.8 0.7-2.0 N (test code = A/G) CALCIUM (test code = 8.8 mg/dL 8.2-10.1 N CA) BILIRUBIN TOTAL (test 0.62 mg/dL 0.2-1.00 N code = BILT) SGOT/AST (test code = 64.0 U/L 15-37 H AST) SGPT/ALT (test code = 74.0 U/L 12-78 N Please note new ALT) normal range. ALKALINE PHOSPHATASE 132 U/L 46-116 H TOTAL (test code = ALKP) PROTHROMBIN [id number] 17:00:00 Test Item Value Reference Range Interpretation Comments PROTHROMBIN TIME 12.1 secs 10.1-12.5 N PATIENT (test code = PTP) INTERNATIONAL NORMAL 1.08 <2.0 RECOMME NDED THERAPEUTIC RATIO (test code = RANGE FOR ORAL INR) ANTICOAGULANTTR EATMENT: CONDI TION INRProphylaxis of venous thrombos is in 2.0 - 3.0 high-risk medic al or surgical patientsTreatme nt of venous thrombos is 2.0 - 3.0Prevention o f embolism 2.0 - 3.0Prevention o f recurrent embol ism, or 3.0 - 4. 5 patients with mechanical pros thetic intravascular v turcios IS PATIENT ON ANTICOAGULANTS ? NHas Lab been notified if Patient is on Heparin Drip? NOIf Yes, orderCBC, OCCULT BLOOD, PT every other day NTHROMBOPLASTIN TIME [id number] 17:00:00 Test Item Value Reference Range Interpretation Comments PTT ACTIVATED (test code = APTT) 33.2 secs 24.9-37.0 N IS PATIENT ON ANTICOAGULANTS ? NHas Lab been notified if Patient is on Heparin Drip? NOIf Yes, orderCBC, OCCULT BLOOD, PT every other day NCBC W/AUTO DIFF 2020-01-02 16:49:00 Test Item Value Reference Range Interpretation Comments WHITE BLOOD CELL (test code = WBC) 8.7 K/mm3 5.8-11.0 N RED BLOOD CELL (test code = RBC) 5.51 M/mm3 4.2-5.4 H HEMOGLOBIN (test code = HGB) 15.2 g/dL 12-16 N HEMATOCRIT (test code = HCT) 46.9 % 37-47 N MEAN CELL VOLUME (test code = MCV) 85 fL 80-98 N MEAN CELL HGB (test code = MCH) 27.6 pg 27-34 N MEAN CELL HGB CONCENTRATION (test 32.4 g/dL 30.8-34.1 N code = MCHC) RED CELL DISTRIBUTION WIDTH (test 13.2 % 11-16 N code = RDW) PLT (test code = PLT) 138 K/mm3 130-400 N MEAN PLATELET VOLUME (test code = 14.2 fL 8.9-12.1 H MPV) NEUTROPHIL % (test code = NT%) 55.3 % 45-70 N LYMPHOCYTE % (test code = LY%) 31.0 % 20-40 N MONOCYTE % (test code = MO%) 9.2 % 3-10 N EOSINOPHIL % (test code = EO%) 3.8 % 1-5 N BASOPHIL % (test code = BA%) 0.5 % 0.0-1.1 N NEUTROPHIL # (test code = NT#) 4.84 K/mm3 2.00-7.50 N LYMPHOCYTE # (test code = LY#) 2.71 K/mm3 1.50-4.00 N MONOCYTE # (test code = MO#) 0.80 K/mm3 0.2-0.8 N EOSINOPHIL # (test code = EO#) 0.33 K/mm3 0.04-0.4 N BASOPHIL # (test code = BA#) 0.04 K/mm3 0.02-0.10 N MANUAL DIFF REQUIRED (test code = NO MANUAL DIFF MDIFF) NUCLEATED RED BLOOD CELL (test 0 % 0-0 N code = NRBC) GLYCOSYLATED HEMOGLOBIN (HA1C)2019-09-01 14:42:00 Test Item Value Reference Range Interpretation Comments GLYCOSYLATED 11.6 % 4.8-5.9 H Any condition t hat HEMOGLOBIN (HA1C) shortens e rythocyte (test code = GLYHGB) surviva l or decreasesmean erythrocyte age (e.g., recovery from a cute blood loss,hemolytic anemai) will falsely lo wer HGBA1c resultsregardle ss of the method used. H GBA1c results frompat ients with HbSS, HbCC and HbSc must be interpreted withcaution given the patho logical processes, incl uding anemia,increase d red cell turnover, trans fusion requirements, thatadversely i mpact HGBA1c as a mar ker of long-term glyce miccontrol. Alternative fo alesha of testing such as fructosaminesho uld be considered for these patients.Any co ndition that shortens e rythocyte survival or dec reasesmean erythrocyte age (e.g., recovery from a cute blood loss,hemolytic anemia) will falsely lo wer HGBA1c resultsregardle ss of the method used. H GBA1c results from jannet woodard HbSS, HbCC, and HbSc must be interpreted with cautiongiven th e pathological pr ocesses, including anemi a,increased red cell turnov er, transfusion req uirements, thatadversely i mpact HGBA1c as a mar ker of long-term glyce miccontrol. Alternative for ms of testing such as fructosaminesho uld be considered for these patients.DONE A T: [facility] [address], [place] [address] GLYCOSYLATED HEMOGLOBIN (HA1C)2019-09-01 14:41:00 Test Item Value Reference Range Interpretation Comments GLYCOSYLATED 11.6 % 4.8-5.9 H Any condition t hat HEMOGLOBIN (HA1C) shortens e rythocyte (test code = GLYHGB) surviva l or decreasesmean erythrocyte age (e.g., recovery from a cute blood loss,hemolytic anemia) will falsely lo wer HGBA1c resultsregardle ss of the method used. H GBA1c results from jannet woodard HbSS, HbCC, and HbSc must be interpreted with cautiongiven th e pathological pr ocesses, including anemi a,increased red cell turnov er, transfusion req uirements, thatadversely i mpact HGBA1c as a mar ker of long-term glyce miccontrol. Alternative for ms of testing such as fructosaminesho uld be considered for these patients. AB HIV [id number] 13:35:00 Test Item Value Reference Range Interpretation Comments AB HIV 1 (test code NONREACTIVE NONREACTIVE DONE AT: [facility] = HIV1AB) [facility] [address] [facility], [place] [address]Done by [facility] [facility] 4th Gen HIV Ag/Ab C ombo Screen AB HIV 1 13:34:00 Test Item Value Reference Range Interpretation Comments AB HIV 1 2 (test NONREACTIVE NONREACTIVE Done by Yadiel steinberg [facility] code = [id number]) 4th Gen HIV Ag/Ab Combo Screen CBC W/AUTO [id number] 13:09:00 Test Item Value Reference Range Interpretation Comments WHITE BLOOD CELL (test code = WBC) 7.4 K/mm3 5.8-11.0 N RED BLOOD CELL (test code = RBC) 5.73 M/mm3 4.2-5.4 H HEMOGLOBIN (test code = HGB) 15.6 g/dL 12-16 N HEMATOCRIT (test code = HCT) 47.7 % 37-47 H MEAN CELL VOLUME (test code = MCV) 83 fL 80-98 N MEAN CELL HGB (test code = MCH) 27.2 pg 27-34 N MEAN CELL HGB CONCENTRATION (test 32.7 g/dL 30.8-34.1 N code = MCHC) RED CELL DISTRIBUTION WIDTH (test 12.8 % 11-16 N code = RDW) PLT (test code = PLT) 132 K/mm3 130-400 N MEAN PLATELET VOLUME (test code = 14.4 fL 8.9-12.1 H MPV) NEUTROPHIL % (test code = NT%) 52.1 % 45-70 N LYMPHOCYTE % (test code = LY%) 34.3 % 20-40 N MONOCYTE % (test code = MO%) 8.6 % 3-10 N EOSINOPHIL % (test code = EO%) 4.0 % 1-5 N BASOPHIL % (test code = BA%) 0.7 % 0.0-1.1 N NEUTROPHIL # (test code = NT#) 3.88 K/mm3 2.00-7.50 N LYMPHOCYTE # (test code = LY#) 2.55 K/mm3 1.50-4.00 N MONOCYTE # (test code = MO#) 0.64 K/mm3 0.2-0.8 N EOSINOPHIL # (test code = EO#) 0.30 K/mm3 0.04-0.4 N BASOPHIL # (test code = BA#) 0.05 K/mm3 0.02-0.10 N MANUAL DIFF REQUIRED (test code = NO MANUAL DIFF MDIFF) NUCLEATED RED BLOOD CELL (test 0 % 0-0 N code = NRBC) URINALYSIS [id number] 12:57:00 Test Item Value Reference Range Interpretation Comments UA COLOR (test code = COLU) YELLOW YELLOW UA APPEARANCE (test code = CLEAR CLEAR APPU) UA GLUCOSE DIPSTICK (test code NEGATIVE NEGATIVE = DGLUU) UA BILIRUBIN DIPSTICK (test NEGATIVE NEGATIVE code = BILU) UA KETONE DIPSTICK (test code NEGATIVE mg/dL NEG = KETU) UA SPECIFIC GRAVITY (test code 1.015 1.003-1.035 = SGU) UA BLOOD DIPSTICK (test code = NEGATIVE NEGATIVE MAURO) UA PH DIPSTICK (test code = 6.0 >6.5 GEORGE) UA PROTEIN DIPSTICK (test code NEGATIVE mg/dL NEG = PROU) UA UROBILINIOGEN DIPSTICK 4.0 mg/dL NORM (test code = URO) UA NITRITE DIPSTICK (test code NEGATIVE NEG = ELENA) UA LEUKOCYTE ESTERASE DIPSTICK NEGATIVE NEGATIVE (test code = LEUU) UA WBC (test code = WBCU) NONE SEEN /HPF 0-2 UA RBC (test code = RBCU) NONE SEEN /HPF 0-2 UA EPITHELIAL CELLS (test code 0-2 /HPF 0-2 = EPIU) UA BACTERIA (test code = BACU) RARE /HPF NONE PROTHROMBIN [id number] 12:38:00 Test Item Value Reference Range Interpretation Comments PROTHROMBIN TIME 12.7 secs 10.1-12.5 H PATIENT (test code = PTP) INTERNATIONAL NORMAL 1.12 <2.0 RECOMME NDED THERAPEUTIC RATIO (test code = RANGE FOR ORAL INR) ANTICOAGULANTTR EATMENT: CONDI TION INRProphylaxis of venous thrombos is in 2.0 - 3.0 high-risk medic al or surgical patientsTreatme nt of venous thrombos is 2.0 - 3.0Prevention o f embolism 2.0 - 3.0Prevention o f recurrent embol ism, or 3.0 - 4. 5 patients with mechanical pros thetic intravascular v turcios IS PATIENT ON ANTICOAGULANTS ? NHas Lab been notified if Patient is on Heparin Drip? NOTHROMBOPLASTIN TIME [id number] 12:38:00 Test Item Value Reference Range Interpretation Comments PTT ACTIVATED (test code = APTT) 32.9 secs 24.9-37.0 N IS PATIENT ON ANTICOAGULANTS ? HIas Lab been notified if Patient is on Heparin Drip? NOCOMPREHENSIVE METABOLIC [id number] 12:21:00 Test Item Value Reference Range Interpretation Comments SODIUM (test code = 138 mmol/L 136-145 N NA) POTASSIUM (test code = 4.1 mmol/L 3.5-5.1 N K) CHLORIDE (test code = 101.0 mmol/L 98-107 N CL) CARBON DIOXIDE (test 29.4 mmol/L 21-32 N code = CO2) GLUCOSE (test code = 237 mg/dL 70-110 H GLU) BLOOD UREA NITROGEN 13 mg/dL 7-18 N (test code = BUN) GLOMERULAR FILTRATION 91.6 >60 Unit o f measure: RATE (test code = GFR) mL/mi n/1.73 [id number] Range:Healthy Adults >90 mL/min/1.73 m2 For Chronic Kidney Disease: St age II Mild Decrease in GFR 60-90 St age III Moderate Decrease in GFR 30-59 Stage IV Severe Decre ase in GFR 15- 29 Stage V Kidney Failure <15 CREATININE (test code 0.78 mg/dL 0.55-1.30 N = CREAT) TOTAL PROTEIN (test 7.1 g/dL 6.4-8.2 N code = PROT) ALBUMIN (test code = 3.2 g/dL 3.4-5.0 L ALB) GLOBULIN (test code = 3.9 g/dL 2.2-4.2 N GLOB) ALBUMIN/GLOBULIN RATIO 0.8 0.7-2.0 N (test code = A/G) CALCIUM (test code = 9.4 mg/dL 8.2-10.1 N CA) BILIRUBIN TOTAL (test 0.86 mg/dL 0.2-1.00 N code = BILT) SGOT/AST (test code = 69.0 U/L 15-37 H AST) SGPT/ALT (test code = 70.0 U/L 12-78 N Please note new ALT) normal range. ALKALINE PHOSPHATASE 151 U/L 46-116 H TOTAL (test code = ALKP) [id number] 01:13:00 Test Item Value Reference Range Interpretation Comments GLUBED (test code = GLUBED) 222 MG/DL 70-105 H COMPREHENSIVE METABOLIC [id number] 23:12:00 Test Item Value Reference Range Interpretation Comments SODIUM (test code = 135 mmol/L 135-145 N NA) POTASSIUM (test 3.9 mmol/L 3.6-5.0 N code = K) CHLORIDE (test code 102 mmol/L 101-111 N = CL) CARBON DIOXIDE 27 mmol/L 21-31 N (test code = CO2) GLUCOSE (test code 459 mg/dl 70-100 H = GLU) BLOOD UREA NITROGEN 14 mg/dl 6-20 N (test code = BUN) GLOMERULAR >=60 max >60 The estimated FILTRATION RATE estimate glomerular (test code = GFR) filtration rate is computed usingpatient ra ce, age (>18), sex, and serum creatinin e. If anyof the ne eded data elements a re missing the Laboratory little ot compute an estimation of t he glomerular filtration rate . CREATININE (test 0.96 mg/dL 0.44-1.03 N code = CREAT) TOTAL PROTEIN (test 7.2 g/dL 6.7-8.2 N code = PROT) ALBUMIN (test code 3.1 g/dL 3.2-5.5 L = ALB) CALCIUM (test code 8.9 mg/dL 8.5-10.5 N = CA) BILIRUBIN TOTAL 0.90 mg/dL 0.2-1.3 N (test code = BILT) SGOT/AST (test code 60 U/L 10-42 H = AST) SGPT/ALT (test code 62 U/L 10-60 H = ALT) ALKALINE 118 U/L 42-121 N PHOSPHATASE (test code = ALKP) BETA [id number] 23:12:00 Test Item Value Reference Range Interpretation Comments BETA HYDROBUTYRATE (test code = 0.05 mmol/L 0.02-0.27 N BETHYD) CBC W/AUTO [id number] 23:08:00 Test Item Value Reference Range Interpretation Comments WHITE BLOOD CELL (test code = 7.3 x10 3/uL 3.2-11.5 N WBC) RED BLOOD CELL (test code = 5.59 x10(6)/m 3.70-5.10 H RBC) HEMOGLOBIN (test code = HGB) 15.7 g/dL 12.0-15.0 H HEMATOCRIT (test code = HCT) 47.6 % 35.7-44.8 H MEAN CELL VOLUME (test code = 85 fL 80-100 N MCV) MEAN CELL HGB (test code = MCH) 28.1 pg 26.2-33.8 N MEAN CELL HGB CONCENTRATION 33.0 g/dL 30.0-34.0 N (test code = MCHC) RED CELL DISTRIBUTION WIDTH 13.2 % 11.3-14.5 N (test code = RDW) PLATELET COUNT (test code = 100 x10 3/uL 130-408 L PLT) MEAN PLATELET VOLUME (test code 13.4 fl 6.4-10.5 H = MPV) NEUTROPHIL % (test code = NT%) 56.7 % 40.0-70.0 N LYMPHOCYTE % (test code = LY%) 32.1 % 20-40 N MONOCYTE % (test code = MO%) 7.5 % 1-10 N EOSINOPHIL % (test code = EO%) 3.1 % 1.0-5.0 N BASOPHIL % (test code = BA%) 0.6 % 0.0-1.0 N NEUTROPHIL # (test code = NT#) 4.1 x10 3/uL 1.6-7.2 N LYMPHOCYTE # (test code = LY#) 2.30 x10 3/uL 1.1-2.7 N MONOCYTE # (test code = MO#) 0.5 x10 3/uL 0.3-0.8 N EOSINOPHIL # (test code = EO#) 0.2 x10 3/uL 0.0-0.5 N BASOPHIL # (test code = BA#) 0.0 x10 3/uL 0.0-0.1 N DIFFERENTIAL [id number] 23:08:00 Test Item Value Reference Range Interpretation Comments RBC MORPHOLOGY REQUIRED NORMAL (test code = RBCM) PLATELET MORPHOLOGY LARGE PLATELETS SEEN NORMAL (test code = PLTMORPH) CBC W/AUTO [id number] 23:06:00 Test Item Value Reference Range Interpretation Comments WHITE BLOOD CELL (test code = 7.3 x10 3/uL 3.2-11.5 N WBC) RED BLOOD CELL (test code = 5.59 x10(6)/m 3.70-5.10 H RBC) HEMOGLOBIN (test code = HGB) 15.7 g/dL 12.0-15.0 H HEMATOCRIT (test code = HCT) 47.6 % 35.7-44.8 H MEAN CELL VOLUME (test code = 85 fL 80-100 N MCV) MEAN CELL HGB (test code = MCH) 28.1 pg 26.2-33.8 N MEAN CELL HGB CONCENTRATION 33.0 g/dL 30.0-34.0 N (test code = MCHC) RED CELL DISTRIBUTION WIDTH 13.2 % 11.3-14.5 N (test code = RDW) PLATELET COUNT (test code = 100 x10 3/uL 130-408 L PLT) MEAN PLATELET VOLUME (test code 13.4 fl 6.4-10.5 H = MPV) NEUTROPHIL % (test code = NT%) 56.7 % 40.0-70.0 N LYMPHOCYTE % (test code = LY%) 32.1 % 20-40 N MONOCYTE % (test code = MO%) 7.5 % 1-10 N EOSINOPHIL % (test code = EO%) 3.1 % 1.0-5.0 N BASOPHIL % (test code = BA%) 0.6 % 0.0-1.0 N NEUTROPHIL # (test code = NT#) 4.1 x10 3/uL 1.6-7.2 N LYMPHOCYTE # (test code = LY#) 2.30 x10 3/uL 1.1-2.7 N MONOCYTE # (test code = MO#) 0.5 x10 3/uL 0.3-0.8 N EOSINOPHIL # (test code = EO#) 0.2 x10 3/uL 0.0-0.5 N BASOPHIL # (test code = BA#) 0.0 x10 3/uL 0.0-0.1 N DIFFERENTIAL [id number] 23:06:00 Test Item Value Reference Range Interpretation Comments PLATELET MORPHOLOGY (test code = NORMAL PLTMORPH) CBC W/AUTO [id number] 23:06:00 Test Item Value Reference Range Interpretation Comments WHITE BLOOD CELL (test code = 7.3 x10 3/uL 3.2-11.5 N WBC) RED BLOOD CELL (test code = 5.59 x10(6)/m 3.70-5.10 H RBC) HEMOGLOBIN (test code = HGB) 15.7 g/dL 12.0-15.0 H HEMATOCRIT (test code = HCT) 47.6 % 35.7-44.8 H MEAN CELL VOLUME (test code = 85 fL 80-100 N MCV) MEAN CELL HGB (test code = MCH) 28.1 pg 26.2-33.8 N MEAN CELL HGB CONCENTRATION 33.0 g/dL 30.0-34.0 N (test code = MCHC) RED CELL DISTRIBUTION WIDTH 13.2 % 11.3-14.5 N (test code = RDW) PLATELET COUNT (test code = 100 x10 3/uL 130-408 L PLT) MEAN PLATELET VOLUME (test code 13.4 fl 6.4-10.5 H = MPV) NEUTROPHIL % (test code = NT%) 56.7 % 40.0-70.0 N LYMPHOCYTE % (test code = LY%) 32.1 % 20-40 N MONOCYTE % (test code = MO%) 7.5 % 1-10 N EOSINOPHIL % (test code = EO%) 3.1 % 1.0-5.0 N BASOPHIL % (test code = BA%) 0.6 % 0.0-1.0 N NEUTROPHIL # (test code = NT#) 4.1 x10 3/uL 1.6-7.2 N LYMPHOCYTE # (test code = LY#) 2.30 x10 3/uL 1.1-2.7 N MONOCYTE # (test code = MO#) 0.5 x10 3/uL 0.3-0.8 N EOSINOPHIL # (test code = EO#) 0.2 x10 3/uL 0.0-0.5 N BASOPHIL # (test code = BA#) 0.0 x10 3/uL 0.0-0.1 N DIFFERENTIAL [id number] 23:06:00 Test Item Value Reference Range Interpretation Comments PLATELET MORPHOLOGY (test code = NORMAL PLTMORPH) URINALYSIS [id number] 22:55:00 Test Item Value Reference Range Interpretation Comments UA COLOR (test code = COLU) YELLOW YELLOW UA APPEARANCE (test code = APPU) Clear CLEAR UA GLUCOSE DIPSTICK (test code = 3+ NEGATIVE DGLUU) UA BILIRUBIN DIPSTICK (test code = NEGATIVE NEGATIVE BILU) UA KETONE DIPSTICK (test code = NEGATIVE NEGATIVE KETU) UA SPECIFIC GRAVITY (test code = 1.022 1.001-1.030 SGU) UA BLOOD DIPSTICK (test code = MAURO) NEGATIVE NEGATIVE UA PH DIPSTICK (test code = GEORGE) 5.0 5.0-9.0 UA PROTEIN DIPSTICK (test code = NEGATIVE NEGATIVE PROU) UA UROBILINOGEN DIPSTICK (test code 2.0 <=1.0 A = URO) UA NITRITE DIPSTICK (test code = NEGATIVE NEGATIVE ELENA) UA ASCORBIC ACID DIPSTICK (test NEGATIVE code = AAU) UA LEUKOCYTE ESTERASE DIPSTICK NEGATIVE NEGATIVE (test code = LEUU) UA WBC (test code = WBCU) 0-5 /HPF 0-5 UA RBC (test code = RBCU) 0-5 /HPF 0-5 UA EPITHELIAL CELLS (test code = FEW /LPF NONE-FEW EPIU) UA BACTERIA (test code = BACU) None /HPF NONE SEEN UA MUCUS (test code = MUCU) 1+ /LPF NONE SEEN
[2020-05-11 15:17] LABS: Urine Blood NEGATIVE (NEG); Urine Glucose TRACE (NEG); Urine Protein NEGATIVE (NEG); Urine Specific Gravity 1.025 (1.005-1.030)
[2020-05-11] MEDS ORDERED: BISACODYL E.C. 5 MG TAB PO ONE (15:23)
[2020-05-11] MEDS ORDERED: BISACODYL 10 MG RECTAL SUPP ONE (15:24)
[2020-05-11] MEDS ORDERED: NA CHLORIDE 0.9% 1,000 ML ONE (16:23)
[2020-05-11] MEDS ORDERED: SIMETHICONE 80 MG TAB ONE (16:23)
[2020-05-11 16:43] LABS: Absolute Lymphocytes (CBC) 2.9 K/uL (0.7-4.9); Basophils % 0.8 % (0-1.3); Hematocrit 49.5 % (36.0-45.0); Lymphocytes % 26.5 % (15.3-44.8); MPV 11.4 fL (7.6-11.3); RBC Red Blood Cell Count 5.76 M/uL (3.86-4.86)
[2020-05-11 17:02] LABS: Albumin 3.3 g/dL (3.4-5.0); Bilirubin Direct 0.6 mg/dL (0-0.2); Bilirubin Total 0.9 mg/dL (0.2-1.0); Protein, Total 8.5 g/dL (6.4-8.2)
[2020-05-11] MEDS ORDERED: FENTANYL CITR 100 MCG/2 ML ONE (17:28)
[2020-05-11 17:45] LABS: Platelet Estimate ADEQ; Platelets, Giant NOTED; Urine White Blood Cell Casts OK
[2020-05-11 17:46] LABS: Blood Morphology Comment NOT SEEN (NOT SEEN)
--- NOTE | 2020-05-11 18:28 | RAD REPORT ---
EXAM DESCRIPTION: CT - Abdomen Pelvis W Contrast - 05/11/2020 6:17 pm CLINICAL HISTORY: ABD PAIN COMPARISON: No comparisons TECHNIQUE: Biphasic, helical CT imaging of the abdomen and pelvis was performed following 100 ml non -ionic IV contrast. No oral contrast administered. All CT scans are performed using dose optimization technique as appropriate and may include automated exposure control or mA/KV adjustment according to patient size. FINDINGS: No suspicious findings in the lung bases. The liver, spleen, and pancreas show no suspicious findings. Liver shows a mild diffuse fatty infiltr ation pattern. Gallbladder is partially contracted which accentuates the gallbladder meneses. At least 1 gallstone is identified approximately 15 mm in size. Additional stones could be occult. No biliary tree dilatation. Symmetric renal function is seen with no hydronephrosis or suspicious renal mass. No pyelonephritis o r acute parenchymal process. No bladder abnormalities. No adrenal abnormalities. Uterus is absent. Ov sarah are absent or atrophic. No adnexal mass. No dilated bowel loops or bowel wall thickening. Moderate stool volume throughout most of the right c olon and transverse colon. Appendix is normal. Several mildly prominent fluid-filled small bowel loop s are present. This is nonspecific. A mild enteritis would be possible. No free air, free fluid or inflammatory stranding. No mass or bulky lymphadenopathy. A 2.8 centimet er diameter fat only umbilical hernia is present. Neck is 2.8 cm. No acute bone findings. Prominent degenerative changes are present in the lower lumbar spine with xenia tral spinal stenosis evident. Nonspecific stranding or edema present in the superficial subcutaneous fatty tissues lateral and slig htly inferior to the umbilicus. No air or foreign body seen. IMPRESSION: Cholelithiasis. No biliary tree or pancreas abnormality. Gallbladder is contracted whi ch limits accurate assessment of gallbladder meneses. Mild diffuse fatty infiltration of the liver. Multiple mildly prominent fluid-filled small bowel loops. No obstruction suspected. Enteritis is poss ible and needs correlation with clinical presentation. Nonspecific stranding in the superficial subcu fat left lateral and slightly inferior to the umbilicu s. Correlation is needed with any cellulitis findings. This is potentially a medication injection sit e.
--- NOTE | 2020-05-11 19:22 | EDPHYS ---
Physician Documentation [facility] Name: Erica Lopez Age: 59 yrs Sex: Female : 1960 Arrival Date: 05/11/2020 Time: 14:39 Bed 19 Private MD: ED Physician Juan Jose Wilkes HPI: 05/11 16:05 This 59 yrs old Black Female presents to ER via Wheelchair with complaints of Abdominal snw Pain, Constipation. 16:05 The patient presents with abdominal pain in the right upper quadrant. Onset: The snw symptoms/episode began/occurred gradually, 5 day(s) ago, and became persistent. The symptoms do not radiate. Associated signs and symptoms: Pertinent positives: constipation. The symptoms are described as constant, crampy. Severity of pain: At its worst the pain was moderate. The patient has not experienced similar symptoms in the past. It is unknown whether or not the patient has recently seen a physician. Historical: - Allergies: 14:55 PENICILLINS; ll1 - PMHx: 14:55 Diabetes - IDDM; Hypertension; ll1 - PSHx: 14:55 total knee-right; ll1 - Immunization history:: Adult Immunizations up to date. - Social history:: Smoking status: Patient reports the use of cigarette tobacco products, smokes one-half pack cigarettes per day, Patient uses street drugs, marijuana, Patient/guardian denies using alcohol. ROS: 16:06 Constitutional: Negative for fever, chills, and weight loss, Eyes: Negative for injury, snw pain, redness, and discharge, ENT: Negative for injury, pain, and discharge, Neck: Negative for injury, pain, and swelling, Cardiovascular: Negative for chest pain, palpitations, and edema, Respiratory: Negative for shortness of breath, cough, wheezing, and pleuritic chest pain, Abdomen/GI: Positive for abdominal pain, nausea, constipation, negative for diarrhea, vomiting Back: Negative for injury and pain, : Negative for injury, bleeding, discharge, and swelling, MS/Extremity: Negative for injury and deformity, Skin: Negative for injury, rash, and discoloration, Neuro: Negative for headache, weakness, numbness, tingling, and seizure, Psych: Negative for depression, anxiety, suicide ideation, homicidal ideation, and hallucinations. Exam: 16:01 Constitutional: This is a well developed, obese patient who is awake, alert, and in no snw acute distress. Head/Face: Normocephalic, atraumatic. Eyes: Pupils equal round and reactive to light, extra-ocular motions intact. Lids and lashes normal. Conjunctiva and sclera are non-icteric and not injected. Cornea within normal limits. Periorbital areas with no swelling, redness, or edema. ENT: Nares patent. No nasal discharge, no septal abnormalities noted. Tympanic membranes are normal and external auditory canals are clear. Oropharynx with no redness, swelling, or masses, exudates, or evidence of obstruction, uvula midline. Mucous membranes moist. Neck: Trachea midline, no thyromegaly or masses palpated, and no cervical lymphadenopathy. Supple, full range of motion without nuchal rigidity, or vertebral point tenderness. No Meningismus. Chest/axilla: Normal chest wall appearance and motion. Nontender with no deformity. No lesions are appreciated. Cardiovascular: Regular rate and rhythm with a normal S1 and S2. No gallops, murmurs, or rubs. Normal PMI, no JVD. No pulse deficits. Respiratory: Lungs have equal breath sounds bilaterally, clear to auscultation and percussion. No rales, rhonchi or wheezes noted. No increased work of breathing, no retractions or nasal flaring. Back: No spinal tenderness. No costovertebral tenderness. Full range of motion. Skin: Warm, dry with normal turgor. Normal color with no rashes, no lesions, and no evidence of cellulitis. MS/ Extremity: Pulses equal, no cyanosis. Neurovascular intact. Full, normal range of motion. Neuro: Awake and alert, GCS 15, oriented to person, place, time, and situation. Cranial nerves II-XII grossly intact. Motor strength 5/5 in all extremities. Sensory grossly intact. Cerebellar exam normal. Normal gait. Psych: Awake, alert, with orientation to person, place and time. Behavior, mood, and affect are within normal limits. 16:01 Abdomen/GI: Inspection: obese Bowel sounds: normal, in all quadrants, Palpation: moderate abdominal tenderness, in the right upper quadrant, Indicators: Escobar's sign is positive. 18:35 Abdomen/GI: Inspection: abdomen appears normal, Bowel sounds: normal, in all quadrants, pm1 Palpation: soft, in all quadrants, mild abdominal tenderness, in the right lower quadrant, mass, is not appreciated, rebound tenderness, is not appreciated, Indicators: Escobar's sign is negative. Vital Signs: 14:53 BP 187 / 110; Pulse 95; Resp 20; Temp 97.8; Pulse Ox 100% on R/A; Pain 9/10; ll1 15:49 BP 142 / 89; Pulse 84; Resp 20; Pulse Ox 96% on R/A; ss 17:00 BP 159 / 109; Pulse 79; Resp 19; Pulse Ox 96% on R/A; vc 18:00 BP 174 / 104; Pulse 69; Resp 19; Pulse Ox 96% ; vc 19:00 BP 191 / 112; Pulse 65; Resp 20; Pulse Ox 95% on R/A; vc 19:36 BP 164 / 112; Pulse 71; Resp 20; Pulse Ox 98% on R/A; vc MDM: 15:42 Patient medically screened. snw 18:19 Data reviewed: vital signs, nurses notes. Data interpreted: Pulse oximetry: on room air snw is 96 %. Interpretation: acceptable. Transition of care: After a detail discussion of the patient's case, care is transferred to Federico Nolasco NP. 19:20 Counseling: I had a detailed discussion with the patient and/or guardian regarding: the pm1 historical points, exam findings, and any diagnostic results supporting the discharge/admit diagnosis, lab results, radiology results, the need for outpatient follow up, a general surgeon, a sledger, to return to the emergency department if symptoms worsen or persist or if there are any questions or concerns that arise at home. 19:20 ED course: Reviewed patient presentation, labs and CT findings with Dr. Wilkes. On pm1 exam, patient without any upper abdominal pain. Mild tenderness present to right lower quadrant. CT negative for appendicitis. Negative for cholecystitis. Positive for cholelithiasis and moderate stool burden. Labs within normal limits. Patient presented to the ER with abdominal pain and constipation onset 5 days ago. Impression is constipation with incidental finding of cholelithiasis. Explained to the patient that she does not met admission criteria, therefore will discharge the patient home with medication for constipation and educated on return precautions for abdominal pain. 05/11 15:03 Order name: Urine Dipstick--Ancillary (enter results); Complete Time: 15:41 em1 05/11 15:56 Order name: CBC with Diff; Complete Time: 17:47 snw 05/11 15:56 Order name: Chem 7; Complete Time: 17:13 snw 05/11 15:56 Order name: LFT's; Complete Time: 17:13 snw 05/11 15:56 Order name: Lipase; Complete Time: 17:13 snw 05/11 15:58 Order name: Glucose, Ancillary Testing; Complete Time: 16:08 EDMS 05/11 15:56 Order name: CT Abd/Pelvis - PO and IV Contrast; Complete Time: 18:29 snw 05/11 16:46 Order name: CBC Smear Scan; Complete Time: 17:47 EDMS 05/11 17:14 Order name: EKG; Complete Time: 17:15 snw 05/11 17:14 Order name: EKG - Nurse/Tech; Complete Time: 19:00 snw Administered Medications: 15:25 Drug: Dulcolax Suppository 10 mg Route: OH; 19:47 Follow up: Response: No adverse reaction vc 15:25 Drug: Bisacodyl 10 mg Route: PO; ah 19:47 Follow up: Response: No adverse reaction vc 16:25 Drug: NS 0.9% 1000 ml Route: IV; Rate: 125 ml/hr; Site: left antecubital; vc 16:25 Drug: Simethicone 240 mg Route: PO; vc 19:46 Follow up: Response: No adverse reaction vc 17:29 Drug: fentaNYL (PF) 25 mcg Route: IVP; Site: left antecubital; vc 19:46 Follow up: Response: No adverse reaction vc 18:35 Drug: fentaNYL (PF) 25 mcg Route: IVP; Site: left antecubital; vc 19:46 Follow up: Response: No adverse reaction vc 19:31 Drug: Bentyl 20 mg Route: PO; wh 19:45 Follow up: Response: No adverse reaction vc Disposition: 05/12 04:27 Co-signature as Attending Physician, Juan Jose Wilkes MD I agree with the assessment and kdr plan of care. Disposition: 05/11/20 19:21 Discharged to Home. Impression: Constipation, unspecified, Cholelithiasis. - Condition is Stable. - Discharge Instructions: Constipation, Adult, High-Fiber Diet, Cholelithiasis. - Prescriptions for Bentyl 20 mg Oral Tablet - take 1 tablet by ORAL route every 6 hours As needed; 20 tablet. Lactulose 10 gram/15 mL Oral Solution - take 30 milliliter by ORAL route once daily; 300 milliliter. - Medication Reconciliation Form, Thank You Letter, Antibiotic Education, Prescription Opioid Use form. - Follow up: Emergency Department; When: As needed; Reason: Worsening of condition. Follow up: Private Physician; When: 2 - 3 days; Reason: Recheck today's complaints, Continuance of care, Re-evaluation by your physician. - Problem is new. - Symptoms have improved. Signatures: Dispatcher [employer] EDMS Juan Jose Wilkes MD MD kdr Therrien, Shelly, [employer]-C [employer]-Csnw Federico Nolasco NP LAPEL PADDER pm1 Kunal Miller Vanessa RN RN vc Joceline Mcdonald, RN RN Michell Hernandez RN RN ll1 Corrections: (The following items were deleted from the chart) 05/11 19:45 19:21 05/11/2020 19:21 Discharged to Home. Impression: Constipation, vc unspecifiedCholelithiasis. Condition is Stable. Forms are Medication Reconciliation Form, Thank You Letter, Antibiotic Education, Prescription Opioid Use. Follow up: Emergency Department; When: As needed; Reason: Worsening of condition. Follow up: Private Physician; When: 2 - 3 days; Reason: Recheck today's complaints, Continuance of care, Re-evaluation by your physician. Problem is new. Symptoms have improved. pm1
--- NOTE | 2020-05-11 19:22 | ER ---
Nurse's Notes [facility] Name: Erica Lopez Age: 59 yrs Sex: Female : 1960 Arrival Date: 05/11/2020 Time: 14:39 Bed 19 Private MD: Diagnosis: Cholelithiasis;Constipation, unspecified Presentation: 05/11 14:53 Chief complaint: Patient states: Abdominal pain with constipation for 1 week. Had 2 ll1 BM's on , none since. No fever. Slight nausea at times. Coronavirus screen: Proceed with normal triage. Patient denies a cough. Patient reports shortness of breath or difficulty breathing. Patient denies measured and/or subjective temperature greater than 100.4F prior to today's visit. Patient denies travel on a cruise ship or to a country the [facility] currently lists as an affected area. Patient denies contact with known and/or suspected case of COVID-19. Ebola Screen: Patient denies travel to an Ebola-affected area in the 21 days before illness onset. Initial Sepsis Screen: Does the patient meet any 2 criteria? HR > 90 bpm. Yes Does the patient have a suspected source of infection? Yes: Acute abdominal pain. Risk Assessment: Do you want to hurt yourself or someone else? Patient reports no desire to harm self or others. Onset of symptoms was May 05, 2020. 14:53 Method Of Arrival: Wheelchair ll1 14:53 Acuity: AARON 3 ll1 Triage Assessment: 13:45 General: Appears in no apparent distress. uncomfortable, ill, obese, Behavior is calm, ss cooperative, appropriate for age. 14:00 Pain: Complains of pain in right lower quadrant and left lower quadrant Pain radiates ss to anterior aspect of right upper chest and xyphoid area Pain currently is 6 out of 10 on a pain scale. at worst was 9 out of 10 on a pain scale. Quality of pain is described as pressure, sharp, squeezing. 14:00 GI: Reports lower abdominal pain, bloating, constipation, cramping. ss Historical: - Allergies: 14:55 PENICILLINS; ll1 - PMHx: 14:55 Diabetes - IDDM; Hypertension; ll1 - PSHx: 14:55 total knee-right; ll1 - Immunization history:: Adult Immunizations up to date. - Social history:: Smoking status: Patient reports the use of cigarette tobacco products, smokes one-half pack cigarettes per day, Patient uses street drugs, marijuana, Patient/guardian denies using alcohol. Screenin:45 Abuse screen: Denies threats or abuse. Nutritional screening: No deficits noted. ss Tuberculosis screening: No symptoms or risk factors identified. Fall Risk None identified. Assessment: 14:00 GI: Bowel sounds present X 4 quads. Abd is soft Abdomen is tender to palpation in right ss lower quadrant. 14:00 General: Appears in no apparent distress. uncomfortable, obese. Pain: Complains of pain vc in left lower quadrant and right lower quadrant. Cardiovascular: Capillary refill < 3 seconds Patient's skin is warm and dry. Respiratory: Airway is patent Respiratory effort is even, unlabored, Respiratory pattern is regular, symmetrical. GI: Reports lower abdominal pain, constipation. : No signs and/or symptoms were reported regarding the genitourinary system. 15:00 Reassessment: Patient appears in no apparent distress at this time. Patient and/or vc family updated on plan of care and expected duration. Pain level reassessed. 16:00 Reassessment: Patient appears in no apparent distress at this time. Patient and/or vc family updated on plan of care and expected duration. Pain level reassessed. Patient states symptoms have improved. 17:00 Reassessment: Patient appears in no apparent distress at this time. Patient and/or vc family updated on plan of care and expected duration. Pain level reassessed. Patient states symptoms have improved. 18:00 Reassessment: Patient appears in no apparent distress at this time. Patient and/or vc family updated on plan of care and expected duration. Pain level reassessed. Patient is alert, oriented x 3, equal unlabored respirations, skin warm/dry/pink. 19:00 Reassessment: Patient appears in no apparent distress at this time. Patient and/or vc family updated on plan of care and expected duration. Pain level reassessed. Patient is alert, oriented x 3, equal unlabored respirations, skin warm/dry/pink. 19:44 Reassessment: Patient appears in no apparent distress at this time. Patient and/or vc family updated on plan of care and expected duration. Pain level reassessed. Patient is alert, oriented x 3, equal unlabored respirations, skin warm/dry/pink. Patient states feeling better. Patient states symptoms have improved. Vital Signs: 14:53 BP 187 / 110; Pulse 95; Resp 20; Temp 97.8; Pulse Ox 100% on R/A; Pain 9/10; ll1 15:49 BP 142 / 89; Pulse 84; Resp 20; Pulse Ox 96% on R/A; ss 17:00 BP 159 / 109; Pulse 79; Resp 19; Pulse Ox 96% on R/A; vc 18:00 BP 174 / 104; Pulse 69; Resp 19; Pulse Ox 96% ; vc 19:00 BP 191 / 112; Pulse 65; Resp 20; Pulse Ox 95% on R/A; vc 19:36 BP 164 / 112; Pulse 71; Resp 20; Pulse Ox 98% on R/A; vc ED Course: 14:39 Patient arrived in ED. bp1 14:54 Triage completed. ll1 14:55 Arm band placed on Patient placed in an exam room, on a stretcher. ll1 15:03 Ara Butts FNP-C is PHCP. snw 15:03 Juan Jose Wilkes MD is Attending Physician. snw 15:13 Joceline Mcdonald, RN is Primary Nurse. ah 16:00 Patient has correct armband on for positive identification. Bed in low position. Call light in reach. Pulse ox on. NIBP on. 16:11 Note: PO CONTRAST D/O \T\ 16;10. bq 17:24 Inserted saline lock: 22 gauge in left antecubital area, using aseptic technique. ll1 18:17 CT Abd/Pelvis - PO and IV Contrast In Process Unspecified. EDMS 18:18 PHCP role handed off by Ara Butts FNP-C pm1 18:18 Federico Nolasco NP is PHCP. pm1 18:18 Primary Nurse role handed off by Joceline Mcdonald, RN vc 18:18 Aurelia Carolina, BALDEV is Primary Nurse. vc 19:43 No provider procedures requiring assistance completed. IV discontinued, intact, vc bleeding controlled, No redness/swelling at site. Pressure dressing applied. Administered Medications: 15:25 Drug: Dulcolax Suppository 10 mg Route: [place]; ah 19:47 Follow up: Response: No adverse reaction vc 15:25 Drug: Bisacodyl 10 mg Route: PO; ah 19:47 Follow up: Response: No adverse reaction vc 16:25 Drug: NS 0.9% 1000 ml Route: IV; Rate: 125 ml/hr; Site: left antecubital; vc 16:25 Drug: Simethicone 240 mg Route: PO; vc 19:46 Follow up: Response: No adverse reaction vc 17:29 Drug: fentaNYL (PF) 25 mcg Route: IVP; Site: left antecubital; vc 19:46 Follow up: Response: No adverse reaction vc 18:35 Drug: fentaNYL (PF) 25 mcg Route: IVP; Site: left antecubital; vc 19:46 Follow up: Response: No adverse reaction vc 19:31 Drug: Bentyl 20 mg Route: PO; 19:45 Follow up: Response: No adverse reaction vc Outcome: 19:21 Discharge ordered by MD. pm1 19:43 Discharged to home via wheelchair. vc 19:43 Condition: good 19:43 Discharge instructions given to patient, Instructed on discharge instructions, follow up and referral plans. medication usage, Demonstrated understanding of instructions, follow-up care, medications, Prescriptions given X 2. 19:45 Patient left the ED. vc Signatures: Dispatcher [employer] EDMS Ara Butts, DYE HOUSE HELPER-C DYE HOUSE HELPER-Csnw Jacinta Lechuga Shelby, RN RN Federico Nolasco, FEDERICO [address] SQL DEVELOPER pm1 Kunal Miller Aurelia Carolina RN RN vc Harris, Amy, RN RN ah Lewis, Lynsay, RN RN [facility] Agnes Bragg [facility]
[2020-05-11] MEDS ORDERED: DICYCLOMINE HCL 10 MG CAP ONE (19:32)
[2020-05-11 19:52] VITALS: TEMP 97.8
[2020-05-11 19:58] VITALS: BP 164/112; O2SAT 98
--- NOTE | 2020-05-12 06:21 | EKG ---
Test Date: 2020-05-11 Test Time: 18:30:00 Wire Splicer: KAPIL MEASUREMENT RESULTS: Intervals: Rate: 64 [place]: 172 QRSD: 102 QT: 434 QTc: 447 [place]: P: 21 [place]: 172 QRS: -44 T: -9 INTERPRETIVE STATEMENTS: Normal sinus rhythm Left axis deviation Nonspecific T wave abnormality Abnormal ECG No previous ECG available for comparison Electronically Signed On 05-12-20 06:20:14 CDT by Cody Huynh
== END 2020-05-11 19:45 | disposition home or self-care (01) ==
LOC: ER 14:37
DX: K80.20 Calculus of gallbladder without cholecystitis without obstruction (principal); K59.00 Constipation, unspecified; I10 Essential (primary) hypertension; F17.210 Nicotine dependence, cigarettes, uncomplicated; Z88.0 Allergy status to penicillin
CPT/HCPCS: 93005; 85025; 80048; 36415; 82947; 80076; 81003; 83690; 74177; 96374; 99284; Q9967; J3010; J7030